=== PATIENT | male | born 1975 | race Caucasian/White ===

== ENCOUNTER 2021-08-09 00:42 | Inpatient (IN) | payer SELFPAY ==
[2021-08-09] MEDS ORDERED: niCARdipine 25 MG/10 ML VIAL ONE ×2 (00:44→02:39)
[2021-08-09 01:00] LABS: #Basophils 0.1 thou/uL (0.0-0.2); #Eosinphils 0.1 thou/uL (0.0-0.7); #Lymphocytes 2.4 thou/uL (1.20-3.40); #Monocytes 0.9 thou/uL (0.11-0.59); #Neutrophils 6.7 thou/uL (1.40-6.50); %Basophils 0.7 % (0.0-1.0); %Eosinophils 1.2 % (0.0-10.0); %Lymphocytes 23.7 % (21.0-51.0); %Monocytes 8.7 % (0.0-10.0); %Neutrophils 65.7 % (42.0-75.0); Mean Corpuscular HGB CONC 34.7 g/dL (32.0-36.0); Mean Corpuscular Hemoglobin 32.4 pg (27.0-31.0); Mean Corpuscular Volume 93.5 fL (78.0-98.0); Mean Platelet Volume 6.6 fL (7.4-10.4); Platelet Count 257 thou/uL (130-400); RBC Distribution Width 11.5 % (11.5-14.5); Red Blood Cell (RBC) Count 5.23 mill/uL (4.70-6.10); White Blood Cell (WBC) Count 10.2 thou/uL (4.8-10.8)
[2021-08-09 01:13] LABS: INR-International Normal Ratio 0.9; PTT 28.6 sec (22.9-36.1); Prothrombin Time 11.8 sec (12.0-14.7)
[2021-08-09 01:21] LABS: ALT (SGPT) 26 U/L (8-55); AST (SGOT) 28 U/L (5-34); Albumin 4.4 g/dL (3.5-5.0); Alkaline Phosphatase 141 U/L (40-110); Anion Gap 18 mmol/L (10-20); BUN (Urea Nitrogen) 14 mg/dL (8.9-20.6); Bilirubin, Total 0.3 mg/dL (0.2-1.2); CK (CPK) 225 U/L (30-200); Calc. Creatinine Clearance 0 mL/min (70-130); Calcium 9.7 mg/dL (7.8-10.44); Carbon Dioxide 25 mmol/L (22-29); Chloride 101 mmol/L (98-107); Glucose 106 mg/dL (70-105); Potassium 3.6 mmol/L (3.5-5.1); Protein, Total 8.4 g/dL (6.0-8.3); Sodium 140 mmol/L (136-145)
[2021-08-09] MEDS ORDERED: Calcium Carbonate 500 MG ChewTAB PO PRN (01:56)
[2021-08-09] MEDS ORDERED: Ondansetron ODT 4 MG TAB PO PRN (01:56)
[2021-08-09] MEDS ORDERED: Acetaminophen 325 MG TAB PO PRN (01:56)
[2021-08-09] MEDS ORDERED: Acetaminophen 650 MG Suppository PR PRN (01:56)
[2021-08-09] MEDS ORDERED: niCARdipine 25 MG in Sodium Chloride 0.9% 250 ML 250 ML IVPB PRN (01:56)
[2021-08-09] MEDS ORDERED: Ondansetron PF 4 MG/2 ML Vial IVP PRN (01:56)
[2021-08-09 03:35] LABS: Actual Bicarbonate (HCO3a) 26.5 mEq/L (22-28); Base Excess (BEa) 2.2 mEq/L (-2.0 to +3.0); Calcium, Ionized (arterial) 1.15 mmol/L (1.12-1.30); O2 Tension (PaO2), arterial 101.8 mmHg (80.0-100.0); Potassium - ABG Lab 3.59 mmol/L (3.70-5.30); pH, Arterial 7.44 (7.35-7.45)
[2021-08-09 03:36] LABS: Puncture Site RRA
[2021-08-09 04:16] LABS: Amphetamine Not Detected (NotDetected); Barbiturates Screen Not Detected (NotDetected); Benzodiazepine Screen Not Detected (NotDetected); Cocaine Metabolite Screen Not Detected (NotDetected); Methadone Not Detected (NotDetected); Methamphetamine Not Detected (NotDetected); Opiate Screen Not Detected (NotDetected); Oxycodone Screen Not Detected (NotDetected); Phencyclidine (PCP) Not Detected (NotDetected); THC/Cannabinoid Screen Detected (NotDetected); Tricyclic Screen Not Detected (NotDetected)
[2021-08-09 04:18] LABS: Cardiac Risk 4.1 (Less than 4.5)
[2021-08-09 04:22] LABS: SARS-CoV-2 NAA Rapid Test Not Detected (NotDetected)
[2021-08-09] MEDS: Amlodipine 5 MG TAB PO SCH ×2 (04:45→04:50)
[2021-08-09] MEDS: niCARdipine 50 MG in Sodium Chloride 0.9% 250 ML 250 ML IVPB PRN ×4 (04:46→21:09)
[2021-08-09] MEDS ORDERED: hydrALAZINE 20 MG/ML VIAL SLOW IVP PRN ×2 (11:27→13:30)
[2021-08-09] MEDS: Sodium Chloride 0.9% 1,000 ML IV SCH (11:56)
[2021-08-09] MEDS ORDERED: Iopamidol-370 76% 500 ML 1 ML ONE (12:01)
[2021-08-09] MEDS ORDERED: Magnevist 469MG/ML 20 ML VIAL ONE ×2 (12:12)
[2021-08-09] MEDS ORDERED: Labetalol HCl 100 MG/20 ML VIAL ONE (13:10)
[2021-08-09] MEDS: Lorazepam 2 MG/ML VIAL SLOW IVP PRN ×2 (13:30→14:40)
[2021-08-09] MEDS: Famotidine/PF 20 mg/2ml Vial SLOW IVP SCH (21:08)
[2021-08-10 04:08] LABS: #Basophils 0.1 thou/uL (0.0-0.2); #Eosinphils 0.1 thou/uL (0.0-0.7); #Lymphocytes 2.5 thou/uL (1.20-3.40); #Monocytes 1.1 thou/uL (0.11-0.59); #Neutrophils 6.1 thou/uL (1.40-6.50); %Basophils 0.9 % (0.0-1.0); %Eosinophils 1.5 % (0.0-10.0); %Lymphocytes 25.3 % (21.0-51.0); %Monocytes 11.1 % (0.0-10.0); %Neutrophils 61.3 % (42.0-75.0); Hemoglobin 15.1 g/dL (14.0-18.0); Mean Corpuscular HGB CONC 34.5 g/dL (32.0-36.0); Mean Corpuscular Hemoglobin 32.7 pg (27.0-31.0); Mean Corpuscular Volume 94.8 fL (78.0-98.0); Mean Platelet Volume 6.6 fL (7.4-10.4); Platelet Count 258 thou/uL (130-400); RBC Distribution Width 11.6 % (11.5-14.5); Red Blood Cell (RBC) Count 4.61 mill/uL (4.70-6.10); White Blood Cell (WBC) Count 9.9 thou/uL (4.8-10.8)
[2021-08-10 04:27] LABS: Anion Gap 10 mmol/L (10-20); BUN (Urea Nitrogen) 9 mg/dL (8.9-20.6); Calc. Creatinine Clearance 172 mL/min (70-130); Calcium 8.7 mg/dL (7.8-10.44); Carbon Dioxide 23 mmol/L (22-29); Chloride 109 mmol/L (98-107); Glucose 94 mg/dL (70-105); Potassium 3.7 mmol/L (3.5-5.1); Sodium 138 mmol/L (136-145)
[2021-08-10] MEDS: Sodium Chloride 0.9% 1,000 ML IV SCH (07:49)
[2021-08-10] MEDS: niCARdipine 50 MG in Sodium Chloride 0.9% 250 ML 250 ML IVPB PRN ×3 (07:49→21:19)
[2021-08-10] MEDS: Famotidine/PF 20 mg/2ml Vial SLOW IVP SCH ×2 (08:09→20:42)
[2021-08-10] MEDS ORDERED: Amlodipine 5 MG TAB PO SCH (09:00)
[2021-08-10] MEDS: hydrALAZINE 20 MG/ML VIAL SLOW IVP PRN ×2 (14:11→19:15)
[2021-08-10] MEDS ORDERED: Amlodipine 10 MG TAB PO SCH (14:45)
[2021-08-10] MEDS: cloNIDine 0.1mg/24 Hour PATCH TD SCH (16:02)
[2021-08-10] MEDS: Labetalol HCl 100 MG/20 ML VIAL SLOW IVP PRN ×2 (16:36→21:19)
[2021-08-11] MEDS ORDERED: diphenhydrAMINE 50 MG/ML VIAL IVP SCH (00:15)
[2021-08-11] MEDS: niCARdipine 50 MG in Sodium Chloride 0.9% 250 ML 250 ML IVPB PRN (03:24)
[2021-08-11] MEDS: Sodium Chloride 0.9% 1,000 ML IV SCH ×2 (03:26→21:58)
[2021-08-11 04:04] LABS: #Basophils 0.1 thou/uL (0.0-0.2); #Eosinphils 0.1 thou/uL (0.0-0.7); #Neutrophils 4.8 thou/uL (1.40-6.50); %Basophils 0.6 % (0.0-1.0); %Lymphocytes 33.1 % (21.0-51.0); %Monocytes 11.5 % (0.0-10.0); %Neutrophils 53.7 % (42.0-75.0); Hemoglobin 14.5 g/dL (14.0-18.0); Mean Corpuscular HGB CONC 33.3 g/dL (32.0-36.0); Mean Corpuscular Hemoglobin 31.8 pg (27.0-31.0); Mean Corpuscular Volume 95.7 fL (78.0-98.0); Mean Platelet Volume 6.7 fL (7.4-10.4); Platelet Count 261 thou/uL (130-400); RBC Distribution Width 11.4 % (11.5-14.5); Red Blood Cell (RBC) Count 4.56 mill/uL (4.70-6.10)
[2021-08-11 04:23] LABS: Anion Gap 15 mmol/L (10-20); BUN (Urea Nitrogen) 12 mg/dL (8.9-20.6); Calc. Creatinine Clearance 156 mL/min (70-130); Calcium 8.7 mg/dL (7.8-10.44); Carbon Dioxide 17 mmol/L (22-29); Chloride 110 mmol/L (98-107); Glucose 98 mg/dL (70-105); Potassium 3.8 mmol/L (3.5-5.1); Sodium 138 mmol/L (136-145)
[2021-08-11] MEDS ORDERED: diphenhydrAMINE 50 MG/ML VIAL IVP PRN (06:00)
[2021-08-11] MEDS: Amlodipine 10 MG TAB PO SCH ×2 (06:55→10:11)
[2021-08-11] MEDS: hydrALAZINE 20 MG/ML VIAL SLOW IVP PRN ×2 (07:02→14:43)
[2021-08-11] MEDS: Famotidine/PF 20 mg/2ml Vial SLOW IVP SCH ×2 (10:10→21:22)
[2021-08-11] MEDS: cloNIDine 0.1mg/24 Hour PATCH TD SCH (10:56)
[2021-08-11] MEDS ORDERED: Lisinopril 10 MG TAB PO SCH (11:30)
[2021-08-12 04:04] LABS: #Basophils 0.1 thou/uL (0.0-0.2); #Eosinphils 0.2 thou/uL (0.0-0.7); #Lymphocytes 2.1 thou/uL (1.20-3.40); #Monocytes 0.9 thou/uL (0.11-0.59); #Neutrophils 4.1 thou/uL (1.40-6.50); %Basophils 0.9 % (0.0-1.0); %Eosinophils 2.9 % (0.0-10.0); %Lymphocytes 28.8 % (21.0-51.0); %Monocytes 12.7 % (0.0-10.0); %Neutrophils 54.6 % (42.0-75.0); Hemoglobin 14.3 g/dL (14.0-18.0); Mean Corpuscular HGB CONC 32.9 g/dL (32.0-36.0); Mean Corpuscular Hemoglobin 31.8 pg (27.0-31.0); Mean Corpuscular Volume 96.7 fL (78.0-98.0); Mean Platelet Volume 6.8 fL (7.4-10.4); Platelet Count 252 thou/uL (130-400); RBC Distribution Width 11.6 % (11.5-14.5); Red Blood Cell (RBC) Count 4.51 mill/uL (4.70-6.10); White Blood Cell (WBC) Count 7.4 thou/uL (4.8-10.8)
[2021-08-12 04:45] LABS: Anion Gap 12 mmol/L (10-20); BUN (Urea Nitrogen) 14 mg/dL (8.9-20.6); Calc. Creatinine Clearance 162 mL/min (70-130); Calcium 9.2 mg/dL (7.8-10.44); Carbon Dioxide 20 mmol/L (22-29); Chloride 109 mmol/L (98-107); Glucose 89 mg/dL (70-105); Potassium 4.2 mmol/L (3.5-5.1); Sodium 137 mmol/L (136-145)
[2021-08-12] MEDS: Lisinopril 10 MG TAB PO SCH (08:36)
[2021-08-12] MEDS: Famotidine/PF 20 mg/2ml Vial SLOW IVP SCH (08:39)
[2021-08-12] MEDS: Amlodipine 10 MG TAB PO SCH (08:39)
[2021-08-12] MEDS: hydrALAZINE 20 MG/ML VIAL SLOW IVP PRN ×2 (09:57→19:28)
[2021-08-12] MEDS: Famotidine 20 MG TAB PO SCH (20:33)
[2021-08-13 06:41] LABS: Anion Gap 13 mmol/L (10-20); BUN (Urea Nitrogen) 19 mg/dL (8.9-20.6); Calc. Creatinine Clearance 150 mL/min (70-130); Calcium 9.1 mg/dL (7.8-10.44); Carbon Dioxide 20 mmol/L (22-29); Chloride 107 mmol/L (98-107); Glucose 89 mg/dL (70-105); Sodium 136 mmol/L (136-145)
[2021-08-13 06:46] LABS: #Basophils 0.1 thou/uL (0.0-0.2); #Eosinphils 0.2 thou/uL (0.0-0.7); #Lymphocytes 2.3 thou/uL (1.20-3.40); #Monocytes 1.1 thou/uL (0.11-0.59); #Neutrophils 4.6 thou/uL (1.40-6.50); %Basophils 0.6 % (0.0-1.0); %Eosinophils 2.6 % (0.0-10.0); %Lymphocytes 28.1 % (21.0-51.0); %Monocytes 13.3 % (0.0-10.0); %Neutrophils 55.4 % (42.0-75.0); Hemoglobin 15.1 g/dL (14.0-18.0); Mean Corpuscular Hemoglobin 33.8 pg (27.0-31.0); Mean Corpuscular Volume 96.6 fL (78.0-98.0); Mean Platelet Volume 7.2 fL (7.4-10.4); Platelet Count 243 thou/uL (130-400); RBC Distribution Width 11.6 % (11.5-14.5); Red Blood Cell (RBC) Count 4.46 mill/uL (4.70-6.10); White Blood Cell (WBC) Count 8.3 thou/uL (4.8-10.8)
[2021-08-13 07:17] LABS: Dopamine 60 pg/mL (0-48); Epinephrine 24 pg/mL (0-62); Norepinephrine 906 pg/mL (0-874)
[2021-08-13] MEDS: Lisinopril 10 MG TAB PO SCH (08:28)
[2021-08-13] MEDS: Famotidine 20 MG TAB PO SCH ×2 (08:29→19:44)
[2021-08-13] MEDS: hydrALAZINE 20 MG/ML VIAL SLOW IVP PRN ×3 (08:30→20:30)
[2021-08-13] MEDS: Amlodipine 10 MG TAB PO SCH (08:30)
[2021-08-13] MEDS ORDERED: Lisinopril 10 MG TAB PO SCH (10:00)
[2021-08-14] MEDS: hydrALAZINE 20 MG/ML VIAL SLOW IVP PRN ×5 (00:20→20:09)
[2021-08-14 05:33] LABS: #Eosinphils 0.3 thou/uL (0.0-0.7); #Lymphocytes 2.1 thou/uL (1.20-3.40); #Monocytes 0.9 thou/uL (0.11-0.59); #Neutrophils 4.5 thou/uL (1.40-6.50); %Basophils 0.3 % (0.0-1.0); %Eosinophils 3.5 % (0.0-10.0); %Lymphocytes 27.4 % (21.0-51.0); %Monocytes 11.3 % (0.0-10.0); %Neutrophils 57.6 % (42.0-75.0); Mean Corpuscular HGB CONC 33.6 g/dL (32.0-36.0); Mean Corpuscular Hemoglobin 32.3 pg (27.0-31.0); Mean Corpuscular Volume 96.1 fL (78.0-98.0); Mean Platelet Volume 7.1 fL (7.4-10.4); Platelet Count 255 thou/uL (130-400); RBC Distribution Width 11.7 % (11.5-14.5); Red Blood Cell (RBC) Count 4.65 mill/uL (4.70-6.10); White Blood Cell (WBC) Count 7.8 thou/uL (4.8-10.8)
[2021-08-14 05:52] LABS: Anion Gap 14 mmol/L (10-20); BUN (Urea Nitrogen) 17 mg/dL (8.9-20.6); Calc. Creatinine Clearance 159 mL/min (70-130); Calcium 9.3 mg/dL (7.8-10.44); Carbon Dioxide 18 mmol/L (22-29); Chloride 109 mmol/L (98-107); Glucose 92 mg/dL (70-105); Potassium 4.2 mmol/L (3.5-5.1); Sodium 137 mmol/L (136-145)
[2021-08-14] MEDS: Amlodipine 10 MG TAB PO SCH (08:19)
[2021-08-14] MEDS: Famotidine 20 MG TAB PO SCH ×2 (08:19→20:09)
[2021-08-14] MEDS ORDERED: Lisinopril 20 MG TAB PO SCH ×2 (09:00)
[2021-08-14] MEDS: Labetalol HCl 100 MG/20 ML VIAL SLOW IVP PRN (09:45)
[2021-08-14] MEDS: Atorvastatin Calcium 40 MG TAB PO SCH (20:09)
[2021-08-15] MEDS: hydrALAZINE 20 MG/ML VIAL SLOW IVP PRN ×3 (04:13→21:52)
[2021-08-15 05:30] LABS: Hemoglobin 14.7 g/dL (14.0-18.0); Mean Corpuscular HGB CONC 32.5 g/dL (32.0-36.0); Mean Corpuscular Hemoglobin 31.9 pg (27.0-31.0); Mean Corpuscular Volume 98.1 fL (78.0-98.0); Platelet Count 261 thou/uL (130-400); RBC Distribution Width 11.7 % (11.5-14.5); White Blood Cell (WBC) Count 7.9 thou/uL (4.8-10.8)
[2021-08-15 05:42] LABS: Anion Gap 15 mmol/L (10-20); BUN (Urea Nitrogen) 18 mg/dL (8.9-20.6); Calc. Creatinine Clearance 143 mL/min (70-130); Calcium 9.2 mg/dL (7.8-10.44); Carbon Dioxide 19 mmol/L (22-29); Chloride 108 mmol/L (98-107); Glucose 98 mg/dL (70-105); Potassium 3.6 mmol/L (3.5-5.1); Sodium 138 mmol/L (136-145)
[2021-08-15] MEDS: Hydrochlorothiazide 25 MG TAB PO SCH (08:45)
[2021-08-15] MEDS: Lisinopril 20 MG TAB PO SCH (08:46)
[2021-08-15] MEDS: Amlodipine 10 MG TAB PO SCH (08:46)
[2021-08-15] MEDS: Famotidine 20 MG TAB PO SCH ×2 (08:46→20:47)
[2021-08-15 09:57] VITALS: BMI 34.8
[2021-08-15 12:12] LABS: SARS-CoV-2 PCR by NAA Not Detected (NotDetected)
[2021-08-15 12:39] LABS: Dopamine 24H Ur 467 ug/24 hr (0-510); Dopamine,Ur 406 ug/L (Undefined); Epinephrine 24H Ur 6 ug/24 hr (0-20); Epinephrine,Ur 5 ug/L (Undefined); Norephinephrine 24H U 205 ug/24 hr (0-135); Norephinephrine,Ur 178 ug/L (Undefined)
[2021-08-15] MEDS: hydrALAZINE 25 MG TAB PO SCH ×2 (14:17→20:47)
[2021-08-15] MEDS: Atorvastatin Calcium 40 MG TAB PO SCH (20:47)
[2021-08-16] MEDS: Hydrochlorothiazide 25 MG TAB PO SCH (09:19)
[2021-08-16] MEDS: hydrALAZINE 25 MG TAB PO SCH ×3 (09:19→20:30)
[2021-08-16] MEDS: Lisinopril 20 MG TAB PO SCH (09:20)
[2021-08-16] MEDS: Amlodipine 10 MG TAB PO SCH (09:20)
[2021-08-16] MEDS: Famotidine 20 MG TAB PO SCH ×2 (09:20→20:31)
[2021-08-16] MEDS: Atorvastatin Calcium 40 MG TAB PO SCH (20:31)
[2021-08-17 05:10] LABS: Hemoglobin 15.7 g/dL (14.0-18.0); Mean Corpuscular HGB CONC 33.4 g/dL (32.0-36.0); Mean Corpuscular Hemoglobin 32.8 pg (27.0-31.0); Mean Corpuscular Volume 98.2 fL (78.0-98.0); Mean Platelet Volume 6.9 fL (7.4-10.4); Platelet Count 297 thou/uL (130-400); RBC Distribution Width 11.5 % (11.5-14.5); White Blood Cell (WBC) Count 9.1 thou/uL (4.8-10.8)
[2021-08-17 05:26] LABS: Anion Gap 10 mmol/L (10-20); BUN (Urea Nitrogen) 18 mg/dL (8.9-20.6); Calc. Creatinine Clearance 124 mL/min (70-130); Calcium 9.6 mg/dL (7.8-10.44); Carbon Dioxide 27 mmol/L (22-29); Chloride 105 mmol/L (98-107); Glucose 91 mg/dL (70-105); Potassium 3.7 mmol/L (3.5-5.1); Sodium 138 mmol/L (136-145)
[2021-08-17] MEDS: Amlodipine 10 MG TAB PO SCH (08:31)
[2021-08-17] MEDS: Lisinopril 20 MG TAB PO SCH (08:31)
[2021-08-17] MEDS: Famotidine 20 MG TAB PO SCH ×2 (08:31→20:19)
[2021-08-17] MEDS: Hydrochlorothiazide 25 MG TAB PO SCH (08:31)
[2021-08-17] MEDS: hydrALAZINE 25 MG TAB PO SCH ×4 (08:32→20:20)
[2021-08-17] MEDS: Atorvastatin Calcium 40 MG TAB PO SCH (20:20)
[2021-08-18] MEDS: Famotidine 20 MG TAB PO SCH (08:47)
[2021-08-18] MEDS: hydrALAZINE 25 MG TAB PO SCH ×2 (08:47→12:59)
[2021-08-18] MEDS: Amlodipine 10 MG TAB PO SCH (08:47)
[2021-08-18] MEDS: Lisinopril 20 MG TAB PO SCH (08:48)
[2021-08-18] MEDS: Hydrochlorothiazide 25 MG TAB PO SCH (08:48)
[2021-08-18 12:07] VITALS: BP 144/87; TEMP 98.2
== END 2021-08-18 16:30 | disposition home or self-care (01) | DRG 65 ==
LOC: ERS 00:42 → CCU 01:30 → NEURO 08-12 16:20
PROVIDERS: ADMIT Family Medicine; ATTEND Family Medicine
DX: I62.9 Nontraumatic intracranial hemorrhage, unspecified (principal); G81.94 Hemiplegia, unspecified affecting left nondominant side; I16.1 Hypertensive emergency; C75.4 Malignant neoplasm of carotid body; N17.9 Acute kidney failure, unspecified; Z20.822 Contact with and (suspected) exposure to COVID-19; F32.A Depression, unspecified; F10.10 Alcohol abuse, uncomplicated; F17.210 Nicotine dependence, cigarettes, uncomplicated; F12.90 Cannabis use, unspecified, uncomplicated; R94.31 Abnormal electrocardiogram [ECG] [EKG]; R29.708 NIHSS score 8
CPT/HCPCS: 36415; 36600; 70450; 70496; 70498; 70543; 70553; 74230; 80048; 80053; 80061; 80306; 82384; 82550; 82805; 83036; 83835; 84484; 85025; 85027; 85610; 86850; 86900; 86901; 93005; 93306; 95816; 95819; 95957; 96374; A9579; J0360; J2060; J7050; Q9967; S0028; U0002; U0003; U0005